=== PATIENT | female | born 1990 | race Caucasian/White ===

== ENCOUNTER 2017-07-05 09:57 | Emergency (ER) | payer OTHER ==
[~2017-07-05] VITALS: Ht 162.6 cm; Wt 77.0 kg
[2017-07-05 11:10] LABS: CLARITY URINE CLOUDY (CLEAR); COLOR URINE YELLOW (YELLOW); GLUCOSE URINE NEGATIVE (NEGATIVE); KETONES URINE NEGATIVE (NEGATIVE); LEUKOCYTE ESTERASE URINE 3+ (NEGATIVE); NITRITE URINE NEGATIVE (NEGATIVE); OCCULT BLOOD URINE TRACE (NEGATIVE); PROTEIN URINE NEGATIVE (NEGATIVE); SPECIFIC GRAVITY URINE 1.025 (1.005-1.030); UROBILINOGEN URINE 0.2 E.U./dL (0.2-1.0)
[2017-07-05] MEDS ORDERED: ONDANSETRON 4MG ODT PO STA (11:15)
[2017-07-05] MEDS ORDERED: DICYCLOMINE 10 MG/5 ML ORAL SYR PO STA (11:15)
[2017-07-05] MEDS ORDERED: KETOROLAC 60MG/2ML VIAL IM STA (11:15)
[2017-07-05 11:32] LABS: BASOPHILS % 0.3 % (0.0-2.0); EOSINOPHILS % 0.9 % (0.0-5.0); HEMATOCRIT. 39.3 % (36.0-48.0); HEMOGLOBIN. 13.4 g/dL (12.0-16.0); LYMPHOCYTES % 25.2 % (20.0-50.0); MEAN CORPUSCULAR HEMOGLOBIN 28.7 pg (28.0-32.0); MEAN CORPUSCULAR VOLUME 84.4 fL (81.0-99.0); MEAN PLATELET VOLUME 7.4 fl (7.4-10.4); MONOCYTES % 5.1 % (2.0-8.0); NEUTROPHILS % 68.5 % (40.0-76.0); PLATELET 275 x1000/uL (130-400); RED BLOOD CELL COUNT 4.65 mill/uL (4.2-5.4); RED CELL DISTRIBUTION WIDTH 13.7 % (11.6-14.6)
[2017-07-05 11:47] LABS: CARBON DIOXIDE 28 mEq/L (21-32); CHLORIDE 104 mEq/L (98-107)
[2017-07-05 13:00] VITALS: BP 128/89
== END 2017-07-05 13:24 | disposition home or self-care (01) ==
LOC: ER 09:57
DX: R10.12 Left upper quadrant pain (principal)
CPT/HCPCS: 36415; 80053; 81001; 81025; 83690; 85025; 99284; Q0162

== ENCOUNTER 2017-07-06 12:18 | Emergency (ER) | payer OTHER | END 2017-07-06 12:57 | disposition left against medical advice (07) | LOC: ER 12:34 | DX: R10.9 Unspecified abdominal pain (principal); Z53.21 Procedure and treatment not carried out due to patient leaving prior to being seen by health care provider ==